=== PATIENT | female | born 1965 | race American Indian/Alaskan Native ===

== ENCOUNTER 2018-01-09 08:30 | Outpatient (CLI) | payer OTHER ==
[2018-01-09] MEDS ORDERED: PROVENTIL IH ONE (09:30)
== END 2018-01-09 08:31 | disposition home or self-care (01) ==
LOC: PF 08:30
PROVIDERS: ATTEND Internal Medicine
DX: Z02.71 Encounter for disability determination (principal); R06.9 Unspecified abnormalities of breathing; E11.9 Type 2 diabetes mellitus without complications; F32.9 Major depressive disorder, single episode, unspecified; E66.9 Obesity, unspecified; G47.30 Sleep apnea, unspecified; M19.90 Unspecified osteoarthritis, unspecified site; M25.569 Pain in unspecified knee; M25.559 Pain in unspecified hip; M79.606 Pain in leg, unspecified; M54.9 Dorsalgia, unspecified; M25.60 Stiffness of unspecified joint, not elsewhere classified
CPT/HCPCS: 94060; 94640; 94729